=== PATIENT | male | born 1985 | race Two or more races ===

== ENCOUNTER 2017-10-05 13:35 | Emergency (ER) | payer OTHER ==
[~2017-10-05] VITALS: Ht 175.3 cm; Wt 72.6 kg
[2017-10-05 14:04] VITALS: BP 136/86
[2017-10-05] MEDS ORDERED: KETOROLAC TROMETH 60MG/2ML VIAL IM ONE (15:00)
== END 2017-10-05 15:38 | disposition home or self-care (01) ==
LOC: ER 13:35
DX: S83.91XA Sprain of unspecified site of right knee, initial encounter (principal); S80.811A Abrasion, right lower leg, initial encounter; S80.211A Abrasion, right knee, initial encounter; Z88.0 Allergy status to penicillin; W01.0XXA Fall on same level from slipping, tripping and stumbling without subsequent striking against object, initial encounter; Y93.89 Activity, other specified; Y92.89 Other specified places as the place of occurrence of the external cause; Y99.8 Other external cause status
CPT/HCPCS: 73562; 96372; 99284; J1885